=== PATIENT | female | born 1960 | race Caucasian/White ===

== ENCOUNTER 2018-01-16 22:20 | Emergency (ER) | payer OTHER ==
[~2018-01-16] VITALS: Ht 160 cm; Wt 67.3 kg
[2018-01-16 22:26] VITALS: BP 195/104
== END 2018-01-16 22:44 | disposition left against medical advice (07) ==
LOC: ED 22:40
DX: I10 Essential (primary) hypertension (principal); Z53.21 Procedure and treatment not carried out due to patient leaving prior to being seen by health care provider

== ENCOUNTER 2018-01-23 21:51 | Emergency (ER) | payer SELFPAY ==
[~2018-01-23] VITALS: Ht 160 cm; Wt 65.5 kg
[2018-01-23 21:53] VITALS: BP 183/111
== END 2018-01-23 22:33 | disposition left against medical advice (07) ==
LOC: ED 22:27
DX: I10 Essential (primary) hypertension (principal); Z53.21 Procedure and treatment not carried out due to patient leaving prior to being seen by health care provider

== ENCOUNTER 2019-10-08 11:52 | Emergency (ER) | payer MEDICAID, OTHER ==
[~2019-10-08] VITALS: Ht 160 cm; Wt 58.6 kg
--- NOTE | 2019-10-08 13:17 | NUR ---
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
[2019-10-08] MEDS ORDERED: ALBUTEROL/IPRATROPIUM 2.5MG/0.5MG, 3 ML NPPB SCH (13:30)
[2019-10-08] MEDS ORDERED: SODIUM CHLORIDE FLUSH 10ML SYR IVF ONE (13:30)
[2019-10-08] MEDS ORDERED: methylPREDNISolone SOD SUCC 125 MG/2 ML IV ONE (13:30)
[2019-10-08] MEDS ORDERED: ALBUTEROL/IPRATROPIUM 2.5MG/0.5MG, 3 ML ONE (13:44)
[2019-10-08] MEDS ORDERED: methylPREDNISolone SOD SUCC 125 MG/2 ML ONE (14:03)
--- NOTE | 2019-10-08 14:05 | NUR ---
PT WITH C/O COUGH X 1 WEEK, AND CONGESTION. CHEST IS TIGHT FROM COUGHING PER PT. PT WITH HX OF COPD, ASTHMA. PT TO BP, CARD MONITOR, CONT PULSE OX. PIV INITIATED, PT MEDICATED PER JAN.
[2019-10-08 14:22] LABS: BASOPHILS # (AUTO) 0.04 x10^3/uL (0-0.1); BASOPHILS % (AUTO) 0 % (0-1); EOSINOPHILS # (AUTO) 0.06 x10^3/uL (0-0.4); EOSINOPHILS % (AUTO) 1 % (1-7); LYMPHOCYTES # (AUTO) 2.21 x10^3/uL (1-3.4); LYMPHOCYTES % (AUTO) 26 % (22-44); MD NO; MEAN CORPUSCULAR HEMOGLOBIN 31.6 pg (27.0-34.8); MEAN CORPUSCULAR HGB CONC 32.8 g/dL (32.4-35.8); MEAN CORPUSCULAR VOLUME 96.3 fL (80-100); MEAN PLATELET VOLUME 8.2 fL (7.4-10.4); MONOCYTES # (AUTO) 0.57 x10^3/uL (0.2-0.8); MONOCYTES % (AUTO) 7 % (2-9); NEUTROPHILS # (AUTO) 5.51 x10^3/uL (1.8-6.8); NEUTROPHILS % (AUTO) 66 % (42-75); PLATELET COUNT 259 x10^3/uL (130-400); RED BLOOD COUNT 4.95 x10^6/uL (3.82-5.3); RED CELL DISTRIBUTION WIDTH 13.6 % (9.6-15.2)
[2019-10-08 14:31] LABS: ALANINE AMINOTRANSFERASE 24 U/L (12-78); ALBUMIN 3.5 g/dL (3.4-5.0); ANION GAP 5 mmol/L (5-15); CALCIUM 9.1 mg/dL (8.5-10.1); CHLORIDE 105 mmol/L (98-107)
[2019-10-08 14:35] LABS: ALKALINE PHOSPHATASE 97 U/L (45-117); BILIRUBIN,TOTAL 0.5 mg/dL (0.2-1.0); CREATININE 1.06 mg/dL (0.55-1.02); TOTAL PROTEIN 7.6 g/dL (6.4-8.2); TROPONIN I < 0.015 ng/mL (0.000-0.045)
[2019-10-08 14:54] VITALS: BP 167/106
--- NOTE | 2019-10-08 14:58 | NUR ---
PT STATES RELEIF FROM NEB TX AND MEDICATION ADMIN, PT STATES CHEST IS "LESS TIGHT". BP REMAINS SLIGHTLY ELEVATED, MD AWARE. NAD NOTED
== END 2019-10-08 16:21 | disposition home or self-care (01) ==
LOC: ED 14:55
DX: J44.1 Chronic obstructive pulmonary disease with (acute) exacerbation (principal); F17.200 Nicotine dependence, unspecified, uncomplicated
CPT/HCPCS: 36415; 71046; 80053; 83605; 83880; 84484; 85025; 87040; 93005; 94640; 96374; 99284; J2930; J7620

== ENCOUNTER 2021-05-18 16:00 | Inpatient (IN) | payer MEDICAID ==
[~2021-05-18] VITALS: Ht 160 cm; Wt 65.0 kg
--- NOTE | 2021-05-18 16:17 | NUR ---
CC OF DIFFICULTY SPEAKING, FORGETFULL, DROOLING, AND FATIGUE. SO AT BEDSIDE, STATES IT STARTED AROUND 2200 LAST NIGHT. PT ANSWERS A&O QUESTIONS APPROPIATELY BUT SO STATES "SHE ISN'T ACTING LIKE HERSELF". PT ADMITS TO RUNNING OF BP PILLS AND INHALER OVER A YEAR AGO. NEURO ASSESSMENT WNL.
[2021-05-18] MEDS ORDERED: LABETALOL 5MG/ML, 20ML IVPush ONE (17:00)
--- NOTE | 2021-05-18 17:08 | NUR ---
TASK RN. IV PLACED, NO RETURN BLOOD FLOW-UNABLE TO DRAW LABS. IV FLUSHES WELL. CALL LIGHT WITHIN REACH.
[2021-05-18] MEDS ORDERED: LABETALOL 5MG/ML, 20ML ONE (17:15)
[2021-05-18 17:52] LABS: ALBUMIN 3.4 g/dL (3.4-5.0); ANION GAP 8 mmol/L (5-15); CALCIUM 8.6 mg/dL (8.5-10.1); CHLORIDE 110 mmol/L (98-107)
[2021-05-18 17:55] LABS: BASOPHILS % (AUTO) 0 % (0-1); EOSINOPHILS % (AUTO) 2 % (1-7); LYMPHOCYTES % (AUTO) 30 % (22-44); MEAN CORPUSCULAR HEMOGLOBIN 31.2 pg (27.0-34.8); MEAN CORPUSCULAR HGB CONC 33.9 g/dL (32.4-35.8); MEAN PLATELET VOLUME 8.8 fL (7.4-10.4); MONOCYTES % (AUTO) 9 % (2-9); NEUTROPHILS % (AUTO) 59 % (42-75); PLATELET COUNT 191 x10^3/uL (130-400); RED BLOOD COUNT 4.64 x10^6/uL (3.82-5.3); RED CELL DISTRIBUTION WIDTH 14.1 % (9.6-15.2)
[2021-05-18 17:59] LABS: ALANINE AMINOTRANSFERASE 18 U/L (12-78); ALKALINE PHOSPHATASE 75 U/L (45-117); CREATININE 1.15 mg/dL (0.55-1.02); TOTAL PROTEIN 6.9 g/dL (6.4-8.2); TROPONIN I < 0.015 ng/mL (0.000-0.045)
--- NOTE | 2021-05-18 18:30 | NUR ---
BED BUG FOUND ON PT. PT GOWN CHANGED AND FRESH [place] ON [facility] FOR CT SCAN. PT AND EDUCATED ON KEEPING DOOR CLOSED.
--- NOTE | 2021-05-18 19:05 | NUR ---
PT BACK FROM CT. PT TO BE SHOWERED AND PLACED IN NEW ROOM.
--- NOTE | 2021-05-18 19:24 | NUR ---
PT IN SHOWER FOR DECON.
[2021-05-18] MEDS ORDERED: ENALAPRILAT 1.25 MG/ML, 1ML ONE (19:58)
[2021-05-18] MEDS ORDERED: ENALAPRILAT 1.25 MG/ML, 2ML IV ONE (20:00)
[2021-05-18] MEDS ORDERED: hydrALAzine 20 MG/ML, 1ML IV PRN (20:30)
--- NOTE | 2021-05-18 20:37 | NUR ---
REPORT GIVEN TO MISHA ALFARO
[2021-05-18] MEDS ORDERED: BISACODYL 10 MG SUPP PR PRN (21:00)
[2021-05-18] MEDS ORDERED: SENNA/DOCUSATE TABLET PO PRN (21:00)
[2021-05-18] MEDS ORDERED: POLYETHYLENE GLYCOL 17 GM PACKET PO PRN (21:00)
[2021-05-18] MEDS ORDERED: ONDANSETRON 4 MG TABLET PO PRN (21:00)
[2021-05-18] MEDS ORDERED: ACETAMINOPHEN 650 MG/20.3 ML UDC PO PRN (21:00)
[2021-05-18 21:04] VITALS: BP_SYST 158; BP_SYST 164; BP_DIAS 77; BP_DIAS 84
[2021-05-18] MEDS ORDERED: ALBU0.63 NEB (21:33)
[2021-05-18] MEDS: ATORVASTATIN 40 MG TABLET PO SCH (21:42)
[2021-05-18] MEDS: NICOTINE 7 MG/24 HR PATCH.TD24 TD SCH (21:43)
[2021-05-18] MEDS: CARVEDILOL 6.25 MG TABLET PO SCH (21:44)
[2021-05-18 22:51] VITALS: BP 160/96
[2021-05-19] VITALS (9 sets, daily range): BP systolic 150–182; BP diastolic 79–104
[2021-05-19] MEDS: CARVEDILOL 6.25 MG TABLET PO SCH ×2 (05:09→17:04)
[2021-05-19 05:54] LABS: CHOL/HDL RATIO 4.3; LDL/HDL RATIO 2.8 (0.5-3.0)
[2021-05-19] MEDS: ASPIRIN 81 MG TABLET CHEW PO/NG SCH (07:55)
[2021-05-19] MEDS ORDERED: ALBUTEROL SULFATE 2.5 MG/3 ML NPPB PRN (12:30)
[2021-05-19] MEDS: NICOTINE 7 MG/24 HR PATCH.TD24 TD SCH (20:17)
[2021-05-19] MEDS: ATORVASTATIN 40 MG TABLET PO SCH (20:17)
[2021-05-20 00:09] VITALS: BP 168/97
[2021-05-20 04:06] VITALS: BP 198/106
[2021-05-20 05:34] VITALS: BP 174/89
[2021-05-20] MEDS: CARVEDILOL 6.25 MG TABLET PO SCH ×2 (05:35→17:19)
[2021-05-20 05:59] LABS: BASOPHILS % (AUTO) 1 % (0-1); EOSINOPHILS % (AUTO) 2 % (1-7); LYMPHOCYTES % (AUTO) 27 % (22-44); MEAN CORPUSCULAR HGB CONC 33.1 g/dL (32.4-35.8); MEAN PLATELET VOLUME 9.2 fL (7.4-10.4); MONOCYTES % (AUTO) 9 % (2-9); NEUTROPHILS % (AUTO) 61 % (42-75); PLATELET COUNT 182 x10^3/uL (130-400); RED BLOOD COUNT 4.81 x10^6/uL (3.82-5.3); RED CELL DISTRIBUTION WIDTH 14.1 % (9.6-15.2)
[2021-05-20 06:11] LABS: ANION GAP 5 mmol/L (5-15); CALCIUM 8.3 mg/dL (8.5-10.1); CHLORIDE 109 mmol/L (98-107); CREATININE 0.91 mg/dL (0.55-1.02)
[2021-05-20 07:37] VITALS: BP 138/82
[2021-05-20] MEDS ORDERED: ENOXAPARIN 40 MG/0.4 ML SQ SCH (08:30)
[2021-05-20] MEDS: ASPIRIN 81 MG TABLET CHEW PO/NG SCH (09:16)
[2021-05-20 13:01] VITALS: BP 201/111
[2021-05-20 13:29] VITALS: BP 167/93
[2021-05-20] MEDS ORDERED: LISINOPRIL 20 MG TABLET PO SCH (16:00)
== END 2021-05-20 17:30 | disposition left against medical advice (07) | DRG 65 ==
LOC: ED 17:22 → EDIP 19:51 → 4EST 21:02
PROVIDERS: ADMIT Family Medicine; ATTEND Family Medicine
DX: I63.9 Cerebral infarction, unspecified (principal); I16.1 Hypertensive emergency; F10.10 Alcohol abuse, uncomplicated; F17.210 Nicotine dependence, cigarettes, uncomplicated; I10 Essential (primary) hypertension; J44.9 Chronic obstructive pulmonary disease, unspecified; Z79.899 Other long term (current) drug therapy; Z82.49 Family history of ischemic heart disease and other diseases of the circulatory system; Z82.5 Family history of asthma and other chronic lower respiratory diseases; Z86.73 Personal history of transient ischemic attack (TIA), and cerebral infarction without residual deficits; Z91.14 Patient's other noncompliance with medication regimen
CPT/HCPCS: 36415; 70450; 70551; 80048; 80053; 80061; 80320; 82962; 84484; 85025; 93005; 93306; 93880; 96374; G0378; J1650; G0480; J0360

== ENCOUNTER 2021-08-05 07:37 | Inpatient (IN) | payer MEDICAID ==
[~2021-08-05] VITALS: Ht 160 cm; Wt 60.7 kg
[~2021-08-05 07:37] MED LIST: ALBU0.63 NEB
[2021-08-05 08:32] LABS: BASOPHILS % (AUTO) 1 % (0-1); EOSINOPHILS % (AUTO) 0 % (1-7); LYMPHOCYTES % (AUTO) 26 % (22-44); MEAN CORPUSCULAR HEMOGLOBIN 30.2 pg (27.0-34.8); MEAN CORPUSCULAR HGB CONC 33.6 g/dL (32.4-35.8); MEAN PLATELET VOLUME 8.3 fL (7.4-10.4); MONOCYTES % (AUTO) 11 % (2-9); NEUTROPHILS % (AUTO) 63 % (42-75); PLATELET COUNT 166 x10^3/uL (130-400); RED BLOOD COUNT 4.58 x10^6/uL (3.82-5.3); RED CELL DISTRIBUTION WIDTH 13.7 % (9.6-15.2)
[2021-08-05 08:38] LABS: ALBUMIN 2.6 g/dL (3.4-5.0); ANION GAP 6 mmol/L (5-15); CALCIUM 8.2 mg/dL (8.5-10.1); CHLORIDE 103 mmol/L (98-107); CREATININE 0.83 mg/dL (0.55-1.02)
[2021-08-05] MEDS ORDERED: ALBUTEROL/IPRATROPIUM 2.5MG/0.5MG, 3 ML ONE (08:39)
--- NOTE | 2021-08-05 08:44 | NUR ---
PT HAS CO PRODUCTIVE COUGH, SOB, X 1WEEK. NOT VACC
[2021-08-05] MEDS ORDERED: ALBUTEROL/IPRATROPIUM 2.5MG/0.5MG, 3 ML NPPB ONE (09:00)
--- NOTE | 2021-08-05 09:24 | NUR ---
PT DESATS TO 79% W OUT O2. PT NOW 95% W 3L NASAL CANNULA. DISCUSSED POC W PT TO BE ADMITTED TO HOSPITAL FOR PNEUMONIA
[2021-08-05] MEDS ORDERED: CEFTRIAXONE 1,000 MG in DEXTROSE 5% 50 ML IVPB ONE (09:30)
[2021-08-05] MEDS ORDERED: AZITHROMYCIN 500 MG in SODIUM CHLORIDE 0.9% 250 ML IV ONE (09:30)
[2021-08-05] MEDS ORDERED: SODIUM CHLORIDE FLUSH 10ML SYR IVF PRN (09:30)
[2021-08-05] MEDS ORDERED: SODIUM CHLORIDE 0.9% 1,000ML IVBOLUS ONE (09:30)
--- NOTE | 2021-08-05 09:59 | NUR ---
BLOOD CULTURES DRAWN PRIOR TO ABX
--- NOTE | 2021-08-05 11:27 | NUR ---
ASSISTED PT TO BEDSIDE COMMODE TO VOID. PT HAS STEADY GAIT. SLIGHT SOB WHEN AMBULATING. REMAINED ABOVE 90% ON 5 L O2
--- NOTE | 2021-08-05 12:38 | NUR ---
BED BUGS FOUND ON PT BED AND BELONGINGS
[2021-08-05] MEDS ORDERED: morphine SULFATE 10 MG/ML, 1ML IVPush PRN (13:00)
[2021-08-05] MEDS ORDERED: POLYETHYLENE GLYCOL 17 GM PACKET PO PRN (13:00)
[2021-08-05] MEDS ORDERED: DOCUSATE 100 MG CAPSULE PO PRN (13:00)
[2021-08-05] MEDS ORDERED: PROMETHAZINE 25 MG/ML, 1ML IM PRN (13:00)
[2021-08-05] MEDS ORDERED: OXYcodone IR 5MG TABLET PO PRN (13:00)
[2021-08-05] MEDS ORDERED: ONDANSETRON ODT 4 MG PO PRN (13:00)
[2021-08-05] MEDS ORDERED: hydrALAzine 20 MG/ML, 1ML IVPush PRN (13:00)
[2021-08-05] MEDS ORDERED: ACETAMINOPHEN 325 MG TABLET PO PRN (13:00)
[2021-08-05] MEDS ORDERED: BISACODYL 10 MG SUPP PR PRN (13:00)
[2021-08-05] MEDS ORDERED: ONDANSETRON 2MG/ML, 2ML IVPush PRN (13:00)
[2021-08-05] MEDS ORDERED: ENOXAPARIN 40 MG/0.4 ML SQ SCH (13:00)
[2021-08-05] MEDS ORDERED: DEXAMETHASONE 4 MG/ML, 1ML IVPush SCH (13:00)
[2021-08-05 13:35] VITALS: BP 134/85
[2021-08-05] MEDS: ZINC SULFATE 220 MG CAPSULE PO SCH (13:47)
[2021-08-05] MEDS ORDERED: ALBUTEROL-IPRATROPIUM MDI INH INH PRN (15:00)
[2021-08-05] MEDS ORDERED: ALBUTEROL-IPRATROPIUM MDI INH INH SCH (16:00)
[2021-08-05] MEDS ORDERED: REMDESIVIR 200 MG in SODIUM CHLORIDE 0.9% 100 ML IVPB ONE (18:00)
[2021-08-05 18:13] LABS: ALBUMIN 2.6 g/dL (3.4-5.0); BILIRUBIN, DIRECT 0.1 mg/dL (0.1-0.2)
[2021-08-05 18:15] LABS: BILIRUBIN,INDIRECT 0.4 mg/dL (0.0-2.0); BILIRUBIN,TOTAL 0.5 mg/dL (0.2-1.0); TOTAL PROTEIN 6.5 g/dL (6.4-8.2)
[2021-08-05] MEDS: ASCORBIC ACID 500 MG TABLET PO SCH (18:29)
[2021-08-05 20:36] VITALS: BP 139/81
[2021-08-06 00:06] VITALS: BP 134/84
[2021-08-06] MEDS: ENOXAPARIN 40 MG/0.4 ML SQ SCH ×2 (01:18→13:00)
[2021-08-06] MEDS: DEXAMETHASONE 4 MG/ML, 1ML IVPush SCH ×2 (01:18→13:00)
[2021-08-06 01:47] VITALS: BP 177/101
[2021-08-06 06:12] LABS: BASOPHILS % (AUTO) 0 % (0-1); EOSINOPHILS % (AUTO) 0 % (1-7); LYMPHOCYTES % (AUTO) 15 % (22-44); MEAN CORPUSCULAR HEMOGLOBIN 29.9 pg (27.0-34.8); MEAN CORPUSCULAR HGB CONC 33.5 g/dL (32.4-35.8); MEAN PLATELET VOLUME 8.3 fL (7.4-10.4); MONOCYTES % (AUTO) 5 % (2-9); NEUTROPHILS % (AUTO) 80 % (42-75); PLATELET COUNT 215 x10^3/uL (130-400); RED BLOOD COUNT 4.56 x10^6/uL (3.82-5.3); RED CELL DISTRIBUTION WIDTH 13.8 % (9.6-15.2)
[2021-08-06 06:23] LABS: ALBUMIN 2.3 g/dL (3.4-5.0); ANION GAP 5 mmol/L (5-15); CALCIUM 8.2 mg/dL (8.5-10.1); CHLORIDE 106 mmol/L (98-107)
[2021-08-06 06:32] LABS: ALANINE AMINOTRANSFERASE 25 U/L (12-78); ALKALINE PHOSPHATASE 65 U/L (45-117); BILIRUBIN,TOTAL 0.4 mg/dL (0.2-1.0); CHOL/HDL RATIO 3.7; CHOLESTEROL, TOTAL 157 mg/dL (140-239); CREATININE 0.69 mg/dL (0.55-1.02); HDL CHOL % 27 % (28-40); HDL CHOLESTEROL (DIRECT) 42 mg/dL (40-60); LDL CHOLESTEROL,CALCULATED 105 mg/dL (54-169); LDL/HDL RATIO 2.5 (0.5-3.0); TOTAL PROTEIN 6.5 g/dL (6.4-8.2); TRIGLYCERIDES 52 mg/dL (50-200); VLDL CHOLESTEROL 10 mg/dL (0-25)
[2021-08-06] MEDS ORDERED: MELATONIN 5 MG TABLET PO PRN (08:30)
[2021-08-06] MEDS ORDERED: LOSARTAN 50MG TABLET PO SCH (09:00)
[2021-08-06] MEDS ORDERED: CHOLECALCIFEROL 1,000 UNIT TABLET PO SCH (09:00)
[2021-08-06 09:01] VITALS: BP 173/98
[2021-08-06] MEDS: ZINC SULFATE 220 MG CAPSULE PO SCH (09:03)
[2021-08-06] MEDS: ASCORBIC ACID 500 MG TABLET PO SCH (09:04)
[2021-08-06] MEDS ORDERED: AZITHROMYCIN 500 MG TABLET PO SCH (13:00)
[2021-08-06] MEDS ORDERED: CEFTRIAXONE 1,000 MG in DEXTROSE 5% 50 ML IVPB SCH (13:00)
[2021-08-06] MEDS ORDERED: REMDESIVIR 100 MG in SODIUM CHLORIDE 0.9% 100 ML IVPB SCH (18:00)
== END 2021-08-06 15:20 | disposition left against medical advice (07) | DRG 177 ==
LOC: ED 07:43 → EDIP 09:37 → 3N 13:30
PROVIDERS: ADMIT Internal Medicine; ATTEND Internal Medicine
PROC: XW033E5 Introduction of Remdesivir Anti-infective into Peripheral Vein, Percutaneous Approach, New Technology Group 5 (ICD-10-PCS; principal; 2021-08-05)
DX: U07.1 COVID-19 (principal); J96.01 Acute respiratory failure with hypoxia; J12.82 Pneumonia due to coronavirus disease 2019; J44.0 Chronic obstructive pulmonary disease with (acute) lower respiratory infection; I10 Essential (primary) hypertension; Z53.29 Procedure and treatment not carried out because of patient's decision for other reasons; F17.210 Nicotine dependence, cigarettes, uncomplicated; F10.10 Alcohol abuse, uncomplicated; Z82.49 Family history of ischemic heart disease and other diseases of the circulatory system; Z82.5 Family history of asthma and other chronic lower respiratory diseases; Z86.73 Personal history of transient ischemic attack (TIA), and cerebral infarction without residual deficits
CPT/HCPCS: 36415; 71045; 80048; 80053; 80061; 80076; 82040; 83036; 83605; 83735; 84100; 84145; 84443; 85025; 87040; 93005; 99285; G0378; J0456; J0696; J1100; J1650; U0005; J0360; J7030; J7050; U0003